=== PATIENT | female | born 1965 | race Caucasian/White ===

== ENCOUNTER 2017-06-03 09:14 | Emergency (ER) | payer OTHER ==
[~2017-06-03] VITALS: Ht 162.6 cm; Wt 67.5 kg
[~2017-06-03 09:14] MED LIST: ADDERALL10 MG PO; CIPRO500 MG PO; FLAGYL500 MG PO; LEVOTHYROXINE100 MCG PO; PERCOCET 5/31 TABLET PO; ZOFRAN ODT4 MG PO
[2017-06-03 10:14] LABS: ADD MIUA? YES; BILIRUBIN NEGATIVE; BLOOD NEGATIVE; COLOR YELLOW ((YELLOW)); GLUCOSE (STRIP) NEGATIVE; KETONES NEGATIVE; LEUKOCYTES TRACE; NITRITE NEGATIVE; PROTEIN (STRIP) NEGATIVE; SPECIFIC GRAVITY 1.024 (1.000-1.030); UROBILINOGEN 0.2 MG/DL (0.2-1.0)
[2017-06-03 10:26] LABS: HEMATOCRIT 42.2 % (36.0-46.0); MCH 29.3 PG (29.0-34.0); MCHC 34.4 G/DL (30.0-36.0); MCV 85.3 FL (83-99); MEAN PLAT.VOLUME 9.2 uM^3 (9.5-12.4); PLATELET COUNT 365 K/uL (156-360); RBC DIS.WIDTH-CV 12.4 % (11.8-14.6); RBC DIS.WIDTH-SD 38.5 % (39-53); RED BLOOD COUNT 4.95 M/uL (3.80-5.20); WHITE BLOOD COUNT 5.1 K/uL (4.1-10.2)
[2017-06-03 10:32] LABS: CHLORIDE 108 mEq/L (99-109); POTASSIUM 4.1 mEq/L (3.7-5.4); SODIUM 140 mEq/L (136-147)
[2017-06-03 10:35] LABS: GLUCOSE 103 mg/dL (70-99)
[2017-06-03 10:36] LABS: ANION GAP 9 MEQ/L (2-14)
[2017-06-03 10:37] LABS: TOTAL BILIRUBIN 0.5 mg/dL (0.0-1.0)
[2017-06-03 10:38] LABS: ALKALINE PHOSPHATASE 69 IU/L (3-129); GFR ESTIMATE (CALCULATED) > 59 mL/min/
[2017-06-03 10:40] LABS: UREA NITROGEN (BUN) 15 mg/dL (9-23)
[2017-06-03 10:49] LABS: QUANTITATIVE HCG < 4.0 MIU/ML
[2017-06-03 11:04] LABS: BACTERIA RARE /HPF; EPITHELIAL CELLS RARE /HPF; MUCUS NONE SEEN /LPF; RED BLOOD CELLS NONE SEEN /HPF (0-5); UCUL ADDED? NO; WHITE BLOOD CELLS RARE /HPF (0-5)
[2017-06-03] MEDS ORDERED: ZOFRAN ODT4 MG PO (11:52)
[2017-06-03] MEDS ORDERED: BENTYL10 MG PO (11:52)
[2017-06-03 12:28] VITALS: BP 122/67
== END 2017-06-03 12:28 | disposition home or self-care (01) ==
LOC: EME 09:14
DX: K52.9 Noninfective gastroenteritis and colitis, unspecified (principal); K57.90 Diverticulosis of intestine, part unspecified, without perforation or abscess without bleeding; Z87.442 Personal history of urinary calculi
CPT/HCPCS: 74177; 80053; 81003; 84702; 85027; 99281; 99284; J2405; J3010; J7030

== ENCOUNTER 2018-01-14 18:09 | Emergency (ER) | payer OTHER ==
[~2018-01-14] VITALS: Ht 160 cm; Wt 73.3 kg
[~2018-01-14 18:09] MED LIST changes: +BENTYL10 MG PO
[2018-01-14 19:34] LABS: HEMATOCRIT 43.2 % (36.0-46.0); HEMOGLOBIN 14.8 G/DL (11.9-15.5); MCH 29.5 PG (29.0-34.0); MCHC 34.3 G/DL (30.0-36.0); MCV 86.1 FL (83-99); PLATELET COUNT 359 K/uL (156-360); RBC DIS.WIDTH-CV 12.7 % (11.8-14.6); RBC DIS.WIDTH-SD 39.8 % (39-53); RED BLOOD COUNT 5.02 M/uL (3.80-5.20)
[2018-01-14 19:41] LABS: ALBUMIN 4.8 g/dL (3.2-4.8); CHLORIDE 101 mEq/L (99-109); POTASSIUM 4.4 mEq/L (3.7-5.4); SODIUM 141 mEq/L (136-147)
[2018-01-14 19:43] LABS: GLUCOSE 101 mg/dL (70-99); TOTAL PROTEIN 7.5 g/dL (6.4-8.3)
[2018-01-14 19:45] LABS: TOTAL BILIRUBIN 0.3 mg/dL (0.0-1.0)
[2018-01-14 19:47] LABS: ALKALINE PHOSPHATASE 90 IU/L (3-129); GFR ESTIMATE (CALCULATED) > 59 mL/min/
[2018-01-14 19:48] LABS: UREA NITROGEN (BUN) 13 mg/dL (9-23)
[2018-01-14 19:49] LABS: AST (GOT) 51 IU/L (2-34)
[2018-01-14 19:50] LABS: ALT (GPT) 51 IU/L (3-49); LIPASE 18 U/L (1.0-51.0)
[2018-01-14 20:13] LABS: APPEARANCE CLEAR ((CLEAR)); BILIRUBIN NEGATIVE; BLOOD NEGATIVE; COLOR YELLOW ((YELLOW)); GLUCOSE (STRIP) NEGATIVE; KETONES NEGATIVE; LEUKOCYTES TRACE; NITRITE NEGATIVE; PROTEIN (STRIP) NEGATIVE; SPECIFIC GRAVITY 1.015 (1.000-1.030); UROBILINOGEN 0.2 MG/DL (0.2-1.0)
[2018-01-14 20:18] LABS: BACTERIA NONE SEEN /HPF; EPITHELIAL CELLS RARE /HPF; MUCUS NONE SEEN /LPF; RED BLOOD CELLS 0-5 /HPF (0-5); UCUL ADDED? NO; WHITE BLOOD CELLS 0-5 /HPF (0-5)
[2018-01-14 23:32] VITALS: BP 127/79
== END 2018-01-14 23:33 | disposition home or self-care (01) ==
LOC: EME 18:09
DX: R10.11 Right upper quadrant pain (principal); N28.1 Cyst of kidney, acquired; K76.89 Other specified diseases of liver; Z87.442 Personal history of urinary calculi; Z90.710 Acquired absence of both cervix and uterus; Z88.5 Allergy status to narcotic agent
CPT/HCPCS: 74176; 76705; 80053; 81003; 83690; 85027; 99281; 99285; J1885; J2405; J3010; J7030

== ENCOUNTER → 2018-01-27 | Outpatient (CLI) | payer OTHER | END | disposition home or self-care (01) | LOC: NUC 06:43 | DX: R10.11 Right upper quadrant pain (principal); R10.13 Epigastric pain; K21.9 Gastro-esophageal reflux disease without esophagitis; R11.0 Nausea; Z86.010 Personal history of colon polyps; R74.0 Nonspecific elevation of levels of transaminase and lactic acid dehydrogenase [LDH] | CPT/HCPCS: 78227; A9537; J2805 ==